=== PATIENT | male | born 1995 | race Caucasian/White ===

== ENCOUNTER 2018-07-08 06:58 | Inpatient (IN) | payer OTHER ==
[~2018-07-08] VITALS: Ht 182.9 cm; Wt 104.0 kg
[2018-07-08 07:08] VITALS: Ht 182.9 cm; Wt 104.0 kg
[2018-07-08 08:07] LABS: CALCIUM 9.3 mg/dL (8.5-10.1); CHLORIDE SERUM 99 mmol/L (98-107); CREATININE SERUM 1.4 mg/dL (0.7-1.3); GFR1 > 60 mL/min; GLUCOSE SERUM 133 mg/dL (74-106); POTASSIUM SERUM 3.2 mmol/L (3.5-5.1); SODIUM SERUM 134 mmol/L (136-145)
[2018-07-08 08:13] LABS: ALBUMIN 4.2 g/dL (3.4-5.0); ALKALINE PHOSPHATASE 64 U/L (46-116); ALT/SGPT 70 U/L (16-63); AST/SGOT 39 U/L (15-37); BILIRUBIN TOTAL 0.43 mg/dL (0.20-1.00)
[2018-07-08 08:16] LABS: CK-MB 2.1 ng/mL (0-3.6); TOTAL PROTEIN, SERUM 9.2 g/dL (6.4-8.2)
[2018-07-08 08:30] LABS: PLATELET COUNT 217 x10^3mcL (130-400); RED CELL DISTRIBUTION WIDTH 13.3 % (11.5-14.5)
[2018-07-08 10:06] LABS: BAND NEUTROPHIL 42 % (0-10); BASOPHIL 0 % (0-2); METAMYELOCTE 1 % (0-2); MONOCYTE 20 % (0-7); SEGMENTED NEUTROPHILS 22 % (37-75)
[2018-07-08 10:08] LABS: rbc morphology (normal/abnorm) NORMAL (NORMAL)
[2018-07-08 12:29] VITALS: BP 128/80
[2018-07-08 17:10] VITALS: BP 126/77
[2018-07-08 20:48] VITALS: BP 134/77
[2018-07-09 05:24] VITALS: BP 107/60
[2018-07-09 06:54] LABS: PLATELET COUNT 196 x10^3mcL (130-400); RED CELL DISTRIBUTION WIDTH 13.4 % (11.5-14.5)
[2018-07-09 06:55] LABS: CALCIUM 8.4 mg/dL (8.5-10.1); CARBON DIOXIDE 22.6 mmol/L (21-32); CHLORIDE SERUM 108 mmol/L (98-107); GFR1 > 60 mL/min; GLUCOSE SERUM 81 mg/dL (74-106); POTASSIUM SERUM 3.4 mmol/L (3.5-5.1); SODIUM SERUM 140 mmol/L (136-145)
[2018-07-09 09:49] VITALS: BP 118/73
[2018-07-09 11:13] LABS: BAND NEUTROPHIL 26 % (0-10); BASOPHIL 0 % (0-2); MONOCYTE 24 % (0-7); SEGMENTED NEUTROPHILS 21 % (37-75)
[2018-07-09 11:15] LABS: ovalocyte/elliptocyte 1+; rbc morphology (normal/abnorm) ABNORMAL (NORMAL)
[2018-07-09] MEDS ORDERED: LAC30L PO (16:46)
[2018-07-09 17:13] VITALS: BP 118/73
== END 2018-07-09 18:45 | disposition home or self-care (01) | DRG 247 ==
LOC: ED 06:58 → MU 10:56
PROVIDERS: Emergency Medicine; Internal Medicine
DX: K56.609 Unspecified intestinal obstruction, unspecified as to partial versus complete obstruction (principal); N17.0 Acute kidney failure with tubular necrosis; E87.2 Acidosis; E87.1 Hypo-osmolality and hyponatremia; E87.6 Hypokalemia; K52.9 Noninfective gastroenteritis and colitis, unspecified; Z68.30 Body mass index [BMI] 30.0-30.9, adult
CPT/HCPCS: 82962; 83880; C9113; J1885; J2405; J3480; J7030; Q0092